=== PATIENT | female | born 1950 | race Caucasian/White ===

== ENCOUNTER 2018-07-27 06:10 | Inpatient (IN) ==
--- NOTE | 2018-07-26 20:22 | Anesthesia Evaluation PreOp ---
Date of Encounter: 07/27/18 Time of Encounter: 07:05 - Past History Planned Operation: right TSR Cardiac History: Hyperlipidemia Pulmonary History: Denies Any Significant HX [employer] History: Other (hx brain tumor with resection, peripheral neuropathy) Other Medical History: Hepatic (cirrhosis), Diabetes Type II, Thyroid (hypo), GERD, Other (depression, chronic pain) Anesthesia History: No Prior Anesthetic Complications, Past Anesthesia (craniotomy, breast reduction, JEANINE, aisha, Back sx, Chest wall cyst, CTR, appy, first toe amp) Alcohol Use: none Drug use: none Medications and Allergies Lidocaine [Lidoderm] 1 each TP BID PRN #14 adh..patch 04/10/18 [Rx] Allergy/AdvReac Type Severity Reaction Status Date / Time IVP dye Allergy Hives Uncoded 04/10/18 15:51 - Meds/Allergy Pre-op Review Medications Reviewed: Yes Allergies Reviewed: Yes Beta Blockers on Current Med List: No Anesthesia Results - Labs Laboratory Tests 07/20/18 07/20/18 07/20/18 12:25 12:25 12:25 Hgb 11.4 L Hct 34.4 L Plt Count 84 L PT 11.8 INR 1.0 APTT 27.9 Sodium 140 Potassium 4.0 BUN 18 Creatinine 0.99 - Imaging EKG: report reviewed (SINUS RHYTHM) Anesthesia Exam Selected Entries 07/27/18 06:35 Temperature 98.0 F Pulse Rate 101 Respiratory Rate 18 Blood Pressure 138/77 O2 Sat by Pulse Oximetry 99 Weight: 54kg NPO (# of Hours): 8 - HEENT Pupil (Motor): EOMI Mallampati: II Teeth: Edentulous Oral Opening: Less than or equal to 3 - [employer] LOC: Oriented [employer] Motor: Normal RUE, Normal LUE, Normal RLE, Normal LLE, Normal Face [employer] Sensory: Deficit: RUE (hyperesthesia), LUE (hyperesthesia), RLE (hyperesthesia), LLE (hyperesthesia) - Cardiac Rhythm: Regular Murmur: None - Pulmonary Breath Sounds: bilateral Clear Respiratory Effort: Symmetrical Anesthesia Assess/Plan ASA Score: 2 Level of consciousness: Cooperative, Oriented, Tranquil Anesthetic Plan: General, Regional Nerve Block Regional Nerve Block Plan: Interscalene Monitoring Plan: Standard Monitors Recovery Plan: PACU (agrees to GA and block)
[2018-07-27] MEDS ORDERED: CeFAZolin Syr 2,000MG/20 ML 2,000 MG/20 ML SYRINGE IVPB ONE (06:24)
--- NOTE | 2018-07-27 06:26 | History & Physical Report ---
Date of Encounter: 07/27/18 Time of Encounter: 06:26 24 Hour HP Update - Instructions Instructions: If the History and Physical is less than 30 days old and was completed prior to A.M. admission and or procedure and has NOT been updated on calendar day of procedure please complete this update prior to performing procedure. - Update Patient reports changes in Medical Condition: No Changes in examination, assessment, or condition: No Changes in Medication: No Preop tests/diagnostics Reviewed: Yes Surgery Remains Indicated: Yes Consent for Planned Operative Procedure(s) Verified: Yes - Pre-Operative Checklist Preoperative Checklist Indicated: No Prophylactic Antibiotic Ordered: Yes Is VTE Prophylaxis Indicated?: Yes
[2018-07-27] MEDS ORDERED: Ringers Solution, Lactated 1,000 ML IVC SCH ×2 (06:30→10:52)
[2018-07-27] MEDS ORDERED: *HR* Propofol 200 MG/20 ML VIAL IVP ONE (07:07)
[2018-07-27] MEDS ORDERED: *HR* Midazolam HCl 2 MG/2 ML VIAL ONE (07:07)
[2018-07-27] MEDS ORDERED: *HR* FentaNYL (PF) 100 MCG/2 ML VIAL ONE (07:07)
[2018-07-27] MEDS ORDERED: Ondansetron 4 MG/2 ML VIAL ONE (07:10)
[2018-07-27] MEDS ORDERED: *HR* Succinylcholine 200 MG/10 ML VIAL IVP ONE (07:10)
[2018-07-27] MEDS ORDERED: Lidocaine -MPF 2% 2 ML VIAL ONE (07:10)
[2018-07-27] MEDS ORDERED: Lidocaine -MPF 4% 5 ML AMPUL ONE (07:10)
[2018-07-27] MEDS ORDERED: Dexamethasone 4 MG/ML VIAL ONE (07:10)
[2018-07-27] MEDS ORDERED: ROPIVACAINE HCL/PF 0.5% 30 ML VIAL ONE (07:16)
[2018-07-27] MEDS ORDERED: Bupivacaine/Clonidine Syringe 1 EACH SYRINGE ONE (07:16)
[2018-07-27] MEDS ORDERED: Celecoxib 100 MG CAPSULE PO ONE (07:17)
[2018-07-27] MEDS ORDERED: Ethanol\\Acetic Acid\\Na Ace\\Ben 1,000 ML IRRIG.SOLN IR ONE (07:32)
--- NOTE | 2018-07-27 07:53 | Discharge Summary ---
<Olivier Polanco - Last Filed: 07/27/18 07:52> Orders not resulted at time of discharge: Pending orders 07/27/18 07:14 US anesthesia pain block [US] Stat Date of Encounter: 07/27/18 - Discharge Diagnosis (1) Hyperlipidemia Priority: Secondary Status: Chronic Qualifiers: Hyperlipidemia type: unspecified Qualified Code(s): E78.5 - Hyperlipidemia, unspecified (2) Type 2 diabetes mellitus Priority: Secondary Status: Chronic Qualifiers: Diabetes mellitus senior care insulin use: unspecified rat exterminator insulin use status Diabetes mellitus complication status: without complication Qualified Code(s): E11.9 - Type 2 diabetes mellitus without complications (3) History of brain tumor Priority: Secondary Status: Chronic (4) Rotator cuff tear arthropathy of right shoulder Priority: Primary Status: Chronic (5) Status post total replacement of right shoulder Priority: Primary Status: Acute - Hospital Course Hospital course: Ms. Broussard is a 67 year old female - Time Spent with Patient Total time spent providing and/or coordinating discharge services: - Discharge Medications Prescriptions: Docusate [Colace] 100 mg PO BID #14 capsule Ferrous Sulfate [Iron] 325 mg PO DAILY #30 tablet Home Medications: Docusate [Colace] 100 mg PO BID #14 capsule 07/27/18 [Rx] Ferrous Sulfate [Iron] 325 mg PO DAILY #30 tablet 07/27/18 [Rx] Insulin ASPART [Novolog Flexpen] 2 - 13 unit SQ AD 07/27/18 [History] Insulin Glargine,Hum.rec.anlog [Basaglar Kwikpen U-100] 20 unit SQ QPM 07/27/18 [History] Insulin Glargine,Hum.rec.anlog [Basaglar Kwikpen U-100] 40 unit SQ QAM 07/27/18 [History] OxyCODONE Immed Rel [Roxicodone 5 MG] 5 mg PO Q6HR PRN 5 Days #20 tablet 07/27/18 [Rx] Sertraline [Zoloft] 25 mg PO DAILY 07/27/18 [History] Allergies/Adverse Reactions: Allergy/AdvReac Type Severity Reaction Status Date / Time Iodinated Contrast- Oral and Allergy Hives Verified 07/27/18 07:23 IV Dye Primary care physician: Deisi Burgos - Patient Status Disposition: Home Health Service Condition: Good - Discharge Instructions Follow Up With: Deisi Burgos [Primary Care Provider] - <Brittany Vanessa - Last Filed: 07/28/18 16:48> - NOTES TO OUTPATIENT PROVIDER Notes to Outpatient Provider: Acute Blood loss anemia - follow up H/H needed Orders not resulted at time of discharge: Pending orders 07/27/18 07:14 US anesthesia pain block [US] Stat 07/27/18 07:53 XR post op reverse apex RT [XR] Routine 07/27/18 09:44 Surgical Pathology [PTH] Routine 07/28/18 04:00 Basic Metabolic Panel AM 0400 Hemoglobin and Hematocrit [HEME] AM 0400 07/29/18 04:00 Basic Metabolic Panel AM 0400 Hemoglobin and Hematocrit [HEME] AM 0400 Date of Encounter: 07/28/18 Time of Encounter: 16:46 - Discharge Diagnosis (1) Status post total replacement of right shoulder Priority: Primary Status: Acute Comments: Opsite dressing, leave intact until first post-operative visit. Zipline/Josemanuel in place, plan to remove at post-operative day #14-16. If dressing becomes >50% saturated, contact office, remove dressing and place appropriate dressing in its place. Do not allow for dressing to get wet. Shoulder Precautions x 6 weeks. Apply cold therapy wrap 3-6x/day for 20 minutes at a time. Encourage ambulation throughout the day. Use Incentive spirometer 10x/hour. Elevate affected extremity above heart as tolerated. NWB to affected upper extremity x 6 weeks. Will remove brace at first post-operative appointment. OK to remove during PT/OT and Home exercises. (2) Hyperlipidemia Status: Chronic Qualifiers: Hyperlipidemia type: unspecified Qualified Code(s): E78.5 - Hyperlipidemia, unspecified (3) Rotator cuff tear arthropathy of right shoulder Status: Chronic (4) Type 2 diabetes mellitus Status: Chronic Qualifiers: Diabetes mellitus rat exterminator insulin use: unspecified senior care insulin use status Diabetes mellitus complication status: without complication Qualified Code(s): E11.9 - Type 2 diabetes mellitus without complications - Hospital Course Hospital course: Ms. Broussard is a 67 year old female, status post Right TSR-r 07/27/18. . Patient had uneventful postoperative course. Stable for discharge. Patient seen at bedside, without complaints. A&O x 3 Afebrile, Vital Signs Temp Pulse Resp BP Pulse Ox 07/28/18 10:14 98.7 F 96 16 128/73 95 07/28/18 06:36 98.4 F 91 16 123/67 98 07/28/18 04:16 98.0 F 92 16 118/68 97 07/27/18 23:35 98.6 F 99 15 102/63 94 07/27/18 23:00 92 07/27/18 19:25 97.5 F L 117 15 140/76 94 Intake and Output 07/28/18 07/28/18 07/28/18 07:59 15:59 23:59 Other: Weight 55.5 kg Blood Glucose* 288 262 Patient Weight 07/28/18 23:59 Weight 55.5 kg Labs reviewed. H/H - stable, asymptomatic. Start iron supplement Short CBC 07/28/18 Range/Units 04:30 Hgb 8.6 L (11.5-15.4) g/dL Hct 25.4 L (35.3-44.9) % BMP 07/28/18 Range/Units 04:30 Sodium 137 (136-145) mEq/L Potassium 4.5 (3.5-5.1) mEq/L Chloride 109 H (98-107) mEq/L Carbon Dioxide 23 (23-29) mEq/L BUN 31 H (8-23) mg/dL Creatinine 1.15 (0.60-1.20) mg/dL Glucose 313 H (70-105) mg/dL Calcium 8.9 (8.6-10.3) mg/dL Pain control: adequate Participating in PT. All questions and concerns addressed. Educated on use of incentive spirometer. Encouraged ambulation and proper hydration. Patient educated on post-operative restrictions and post-operative care. Assessment and plan: Continue with postoperative care Discharge plan: Home, discharge today if vitals are stable and pain is controlled. Plan to follow up H/H with Home health - Time Spent with Patient Total time spent providing and/or coordinating discharge services: Date of admission: 07/27/18 10:52 Primary care physician: Deisi Burgos Consults: 07/27/18 10:52 Consult to Occupational Therapy [CONS] Routine Comment: post shoulder surgery Reason for Consult: post shoulder surgery Does patient have active BEDREST order?: No Is patient medically & hemodynamically stable?: Yes Consult to Physical Therapy [CONS] Routine Comment: post shoulder surgery Reason for Consult: post shoulder surgery Does patient have active BEDREST order?: No Is patient medically & hemodynamically stable?: Yes RT Post Op Consult [CONS] Routine Anticipated date of discharge: 07/28/18 Labs on day of discharge: Labs from last 24 hours 07/27/18 07/27/18 10:22 06:31 Hgb 9.9 L D Hct 29.0 L POC Glucose 208 H - Patient Status Functional capacity at discharge: independent ambulation Overall status at discharge: patient is progressing back to baseline
[2018-07-27] MEDS ORDERED: Celecoxib 200 MG CAPSULE PO SCH (09:00)
[2018-07-27] MEDS ORDERED: *HR* HYDROcodone/Acet 5/325 mg TABLET PO PRN (09:10)
[2018-07-27] MEDS ORDERED: Ondansetron 4 MG/2 ML VIAL IVP ONE (09:10)
[2018-07-27] MEDS ORDERED: EPHEDrine 50 MG/ML VIAL ONE (09:17)
--- NOTE | 2018-07-27 09:24 | Anesthesia Procedures ---
Date of Encounter: 07/27/18 Time of Encounter: 08:30 Procedures: Anesthesia - Nerve Block Procedure Date: 07/27/18 Time: 08:30 Allergies/Adv Reactions: IV Dye Pre-op Diagnosis: R Shoulder Rotator Cuff Arthropathy Surgical Procedure: R Reverse Total Shoulder Arthroplasty Checklist: Correct Patient Identifier, Correct procedure, History checked Correct side: Right Blood Thinner: No Monitor Applied: EKG, BP, Pulse Oximetry Supplemental Oxygen via Nasal Cannula (L/min): 2 Sedation: Versed (mg): 2 Sedation: Fentanyl (mcg): 50 Indication: Post Op Analgesia Pre-op Neuro Deficits: No Block Type: Supraclavicular, Other (Intercostobracheal, Superficial Cervical) Catheter placed: No Sterile Technique: Yes Ultrasound used: Yes Anatomy identified: Yes Visual spread of Local: Yes Neuro Stimulation: No Blood on Needle Aspiration: No Smooth Injection of Local: Yes Pain with Injection of Local: No Prep: Chlorhexadine Needle: 22 x 50 mm Stimuplex Local: 0.25% Bupivicaine w/Clonidine 20 mcg/cc (5mL Superficial Cervical, 10mL Intercostobracheal), Ropivacaine (30mL 0.5% Ropivacaine with 8mg Decadron for Supraclavicular Block) Number of Attempts: 1 Complications: None/effective block Vitals: Vital Signs/O2 Sat/Glucose, Most Recent Temp Pulse Resp BP Pulse Ox 98.0 F 92 13 99/60 96 07/27/18 06:35 07/27/18 08:41 07/27/18 08:41 07/27/18 08:41 07/27/18 08:41 Blood Glucose* 208
--- NOTE | 2018-07-27 09:49 | Orthopedic Operative Note ---
Date of procedure: 07/27/18 Pre-op diagnosis: Right shoulder cuff tear arthropathy Post-op diagnosis: same Procedure: Procedure: Total Shoulder Replacment Reverse, right Estimated blood loss: 50 cc Hardware: Metal and polyethylene replacement: Arthrex 24, +2 , 25 screw glenoid baseplate, 4 locking 5.5 screw, 39+4 glenosphere, 7 apex humeral stem, poly insert 3 Exam Under anesthesia: Full motion no instability Procedural Notes: Irreparable tear supraspinatus Operative procedure: The patient was brought to the operating room and placed on the operating room table. After general anesthesia was administered the operative shoulder was examined. Findings were noted. The patient was placed in the modified beachchair position. All pressure points were padded appropriately. And the head was stabilized in the neutral position. The operative extremity was prepped and draped in the sterile surgical fashion. The patient received IV antibiotics prior to skin incision. A standard deltopectoral approach was made to the operative shoulder. Incision was made to the skin and subcutaneous tissue,hemo stasis was obtained with Bovie cautery. Using careful blunt dissection the cephalic vein was identified and mobilized medially. The deltopectoral interval was developed and the clavipectoral fascia was incised. The subscap was released off the lesser tuberosity and tagged with #2 FiberWire suture subscap was irreparable. The humerus was dislocated patient noted to have irreparable tear supraspinatus tendon, and the humeral cut was made along the anatomic neck. Anterior and posterior Bankart retractors were placed to expose the glenoid. The glenoid guide was seated and the centering hole was made. It was reamed with the appropriate reamer. The 24, +2, 25, baseplate was seated and secured with 4 locking 5.5 screw. The baseplate was irrigated and dried and the 39+4 Glenosphere was seated and secured with the Stanley taper. The Stanley taper was tested and found to be secure, glenosphere fixation was secondarily secured with the central screw. The humerus was redislocated and prepared with the diaphyseal reamers, followed by a broaching process up to the appropriate size 7 apex in the patient's anatomic version. The metaphyseal reamer was then utilized. Trial reduction found the shoulder to be relocatable. Trial components were removed and 7 apex stem was impacted in place in the patient's anatomic version. Trial reduction found the shoulder to be relocatable and stable with the appropriate 3 Trial component was removed and the real implant was seated and secured the shoulder was reduced. The shoulder had excellent motion and exc ellent stability and no evidence of dislocation. The deep tissue was irrigated with pulse irrigation. The PA close the shoulder. The deltopectoral interval was closed with a running #1 PDS suture, subcutaneous tissue was irrigated and closed with 0 PDS suture, the skin was closed with Dermabond. The patient was placed in a sterile dressing, abduction brace and extubated. The patient was then transferred to the recovery room in stable condition. Anesthesia: GETA Surgeon: Olivier Polanco Was there an group fitness assistant department head present: Yes Supervisor [employer] Finishing: Brittany Vanessa Estimated blood loss (cc): 50 Condition: stable Disposition: PACU
[2018-07-27] MEDS: *HR* HYDROmorphone (PF) 1 MG/ML SYRINGE IVP PRN ×2 (10:05→10:10)
--- NOTE | 2018-07-27 10:32 | Anesthesia Evaluation Post Op ---
Date of Encounter: 07/27/18 Time of Encounter: 10:31 - Vital Signs Vital Signs: Selected Entries 07/27/18 09:52 Temperature 98.2 F Pulse Rate 95 Respiratory Rate 16 Blood Pressure 120/60 O2 Sat by Pulse Oximetry 100 - Lungs Lungs: Clear Ascult./Percussion - Airway Airway: Non-obstructed - Cardiovascular Regular Rate - Mental Status Mental Status: Alert & Oriented, Answers Appropriately - Pain Pain Scale: 3 Pain Scale used: Numeric (1 - 10) - Nausea Vomiting Nausea Vomiting: Not Present - Hydration Hydration: Ice chips, Has not voided - Discharge PostOp Status: Transfer Patient to floor
[2018-07-27 10:36] LABS: Hemoglobin 9.9 g/dL (11.5-15.4)
[2018-07-27] MEDS ORDERED: Dextrose Gel 15 GM/37.5 ML TUBE PO PRN ×2 (10:52)
[2018-07-27] MEDS ORDERED: MOM Conc 10 ML UD.LIQ PO PRN (10:52)
[2018-07-27] MEDS ORDERED: Sennosides 8.6 MG TABLET PO PRN (10:52)
[2018-07-27] MEDS ORDERED: *HR* OxyCODONE Immed Rel 5 MG TABLET PO PRN (10:52)
[2018-07-27] MEDS ORDERED: NON-FORMULARY MEDICATION 1 EACH EACH (Insulin Aspart [Novolog Flexpen] 0 UNIT) SQ SCH (10:52)
[2018-07-27] MEDS ORDERED: traMADol 50 MG TABLET PO PRN (10:52)
[2018-07-27] MEDS ORDERED: Naloxone 0.4 MG/ML INJ IVP PRN (10:52)
[2018-07-27] MEDS ORDERED: D5% in Water 1,000 ML IVC PRN (10:52)
[2018-07-27] MEDS ORDERED: *HR* Dextrose 50 % in Water (Syg) 50 ML SYRINGE IVP PRN (10:52)
[2018-07-27] MEDS ORDERED: Temazepam 15 MG CAPSULE PO PRN (10:52)
[2018-07-27] MEDS ORDERED: Ondansetron 4 MG/2 ML VIAL IVP PRN (10:52)
[2018-07-27] MEDS: Insulin LISPRO 300 UNITS/3 ML VIAL SQ SCH ×2 (17:08→17:23)
[2018-07-27] MEDS: Insulin DETEMIR 100 UNIT/ML X5UNITS SQ SCH (17:09)
[2018-07-27] MEDS: *HR* Enoxaparin 30 MG/0.3 ML SYRINGE SQ SCH (17:24)
[2018-07-27] MEDS ORDERED: *HR* Enoxaparin 30 MG/0.3 ML SYRINGE SQ SCH (18:00)
[2018-07-27] MEDS ORDERED: Insulin DETEMIR 100 UNIT/ML X5UNITS SQ SCH (18:00)
[2018-07-27] MEDS ORDERED: Insulin LISPRO 300 UNITS/3 ML VIAL SQ SCH (21:00)
[2018-07-28] MEDS: *HR* OxyCODONE/APAP 5/325 TABLET PO PRN ×2 (02:28→06:11)
[2018-07-28 04:58] LABS: Hematocrit 25.4 % (35.3-44.9); Hemoglobin 8.6 g/dL (11.5-15.4)
[2018-07-28 05:17] LABS: Calcium 8.9 mg/dL (8.6-10.3); Potassium 4.5 mEq/L (3.5-5.1)
[2018-07-28] MEDS: *HR* Enoxaparin 30 MG/0.3 ML SYRINGE SQ SCH (06:15)
--- NOTE | 2018-07-28 08:25 | Orthopedics Progress Note ---
Date of Encounter: 07/28/18 Time of Encounter: 08:24 - Assessment and Plan (1) Hyperlipidemia Current Visit: Yes Status: Chronic Qualifiers: Hyperlipidemia type: unspecified Qualified Code(s): E78.5 - Hyperlipidemia, unspecified (2) Type 2 diabetes mellitus Current Visit: Yes Status: Chronic Qualifiers: Diabetes mellitus residential insulin use: unspecified residential insulin use status Diabetes mellitus complication status: without complication Qualified Code(s): E11.9 - Type 2 diabetes mellitus without complications (3) History of brain tumor Current Visit: Yes Status: Chronic (4) Rotator cuff tear arthropathy of right shoulder Current Visit: Yes Status: Chronic (5) Status post total replacement of right shoulder Current Visit: Yes Status: Acute Subjective Interval history: Patient was seen this morning doing well without complaints. Afebrile vital signs stable. Operative extremity: Neurovascularly intact Dressing clean dry and intact Calves nontender Assessment and plan: Continue with postoperative care Hemoglobin 8.6 asymptomatic plan for discharge today Objective Vital signs: Vital Signs Temp Pulse Resp BP Pulse Ox 07/28/18 06:36 98.4 F 91 16 123/67 98 07/28/18 04:16 98.0 F 92 16 118/68 97 07/27/18 23:35 98.6 F 99 15 102/63 94 07/27/18 23:00 92 07/27/18 19:25 97.5 F L 117 15 140/76 94 07/27/18 16:07 97.4 F L 105 16 99/54 95 07/27/18 14:01 97.4 F L 103 12 106/59 8 07/27/18 12:40 97.7 F 109 12 129/74 97 07/27/18 11:40 107 11 100/62 98 07/27/18 11:02 97.6 F 98 9 106/66 99 07/27/18 10:42 97.4 F L 95 16 117/67 98 07/27/18 10:32 95 16 124/68 97 07/27/18 10:22 97.1 F L 97 16 119/75 97 07/27/18 10:12 93 16 127/69 97 07/27/18 10:02 95 16 113/92 97 07/27/18 09:52 98.2 F 95 16 120/60 100 07/27/18 08:41 92 13 99/60 96 07/27/18 08:30 95 14 133/86 97 Intake and Output 07/27/18 07/28/18 07/28/18 23:59 07:59 15:59 Intake Total 50 / 50 Balance 50 / 50 Intake: Oral 50 / 50 Other: Percent of Meal Consumed 10% # Voids 1 Weight 55.5 kg Blood Glucose* 390 288 Patient Weight 07/28/18 23:59 Weight 55.5 kg - Labs CBC & BMP: 07/28/18 04:30 07/28/18 04:30 Labs: Abnormal lab results Hgb 8.6 g/dL (11.5-15.4) L 07/28/18 04:30 Hct 25.4 % (35.3-44.9) L 07/28/18 04:30 Chloride 109 mEq/L (98-107) H 07/28/18 04:30 BUN 31 mg/dL (8-23) H 07/28/18 04:30 Est GFR ( Amer) 57 (> 60) L 07/28/18 04:30 Est GFR (Non-Af Amer) 47 (> 60) L 07/28/18 04:30 BUN/Creatinine Ratio 27 (6-26) H 07/28/18 04:30 Glucose 313 mg/dL (70-105) H 07/28/18 04:30 POC Glucose 208 mg/dL (70-99) H 07/27/18 06:31 Calculated Osmolality 302 (280-300) H 07/28/18 04:30 Consult Discharge Plan - Plan Referrals: Deisi Burgos [Primary Care Provider] - Prescriptions: Docusate [Colace] 100 mg PO BID #14 capsule Ferrous Sulfate [Iron] 325 mg PO DAILY #30 tablet
[2018-07-28] MEDS: Insulin DETEMIR 100 UNIT/ML X5UNITS SQ SCH (09:17)
[2018-07-28] MEDS: Insulin LISPRO 300 UNITS/3 ML VIAL SQ SCH ×2 (09:18→11:55)
[2018-07-28] MEDS ORDERED: Acetaminophen 325 MG TABLET PO PRN (11:04)
[2018-07-28 11:47] VITALS: BP 128/73
--- NOTE | 2018-07-28 16:50 | Physician Discharge Referral ---
Home Health/Hosp Referral Info Transfer to: Home Health Provider in Charge Post Discharge: PCP - Diagnosis (1) Status post total replacement of right shoulder Priority: Primary Status: Acute (2) Hyperlipidemia Priority: Secondary Status: Chronic (3) Rotator cuff tear arthropathy of right shoulder Priority: Primary Status: Chronic (4) Type 2 diabetes mellitus Priority: Secondary Status: Chronic (5) Acute blood loss anemia Status: Acute - Respiratory Orders None Smoking Cessation: Smoking cessation has been advised. For more information, call the [place] Tobacco Quit Line at 1-055-WWEQ-NOW. - Diet/Nutrition Diet/Nutrition Orders: Regular - Activity Activity Orders: Up ad fan, Ambulate, Chair - Services Needed Following services are medically necessary services: Nursing, Home Health Aide, Physical Therapy, Occupational Therapy Home Care Orders: Opsite dressing, leave intact until first post-operative visit. Zipline in place, plan to remove at post-operative day #14-16. If dressing becomes >50% saturated, contact office, remove dressing and place appropriate dressing in its place. Do not allow for dressing to get wet. Shoulder Precautions x 6 weeks. Apply cold therapy wrap 3-6x/day for 20 minutes at a time. Encourage ambulation throughout the day. Use Incentive spirometer 10x/hour. Elevate affected extremity above heart as tolerated. NWB to affected upper extremity x 6 weeks. Will remove brace at first post-operative appointment. OK to remove during PT/OT and Home exercises. Remove ABD pillow at Postoperative day #1 ACUTE BLOOD LOSS ANEMIA: REPEAT H/H THIS WEEK. Short CBC 07/28/18 Range/Units 04:30 Hgb 8.6 L (11.5-15.4) g/dL Hct 25.4 L (35.3-44.9) % BMP 07/28/18 Range/Units 04:30 Sodium 137 (136-145) mEq/L Potassium 4.5 (3.5-5.1) mEq/L Chloride 109 H (98-107) mEq/L Carbon Dioxide 23 (23-29) mEq/L BUN 31 H (8-23) mg/dL Creatinine 1.15 (0.60-1.20) mg/dL Glucose 313 H (70-105) mg/dL Calcium 8.9 (8.6-10.3) mg/dL - Transfer Medications Prescriptions: Docusate [Colace] 100 mg PO BID #14 capsule Ferrous Sulfate [Iron] 325 mg PO DAILY #30 tablet Home Medications: Docusate [Colace] 100 mg PO BID #14 capsule 07/27/18 [Rx] Ferrous Sulfate [Iron] 325 mg PO DAILY #30 tablet 07/27/18 [Rx] Insulin ASPART [Novolog Flexpen] 2 - 13 unit SQ AD 07/27/18 [History] Insulin Glargine,Hum.rec.anlog [Basaglar Kwikpen U-100] 20 unit SQ QPM 07/27/18 [History] Insulin Glargine,Hum.rec.anlog [Basaglar Kwikpen U-100] 40 unit SQ QAM 07/27/18 [History] OxyCODONE Immed Rel [Roxicodone 5 MG] 5 mg PO Q6HR PRN 5 Days #20 tablet 07/27/18 [Rx] Sertraline [Zoloft] 25 mg PO DAILY 07/27/18 [History] Allergies/Adverse Reactions: Allergy/AdvReac Type Severity Reaction Status Date / Time Iodinated Contrast- Oral and Allergy Hives Verified 07/27/18 07:23 IV Dye Certification: Further, I certify that my clinical findings support that this patient is homebound (i.e. absences from home require considerable and taxing effort and are for medical reasons or anabaptism services or infrequently or short duration when for other reasons) because: Homebound Reason: Post-surgery restriction and or conditions limit ability to leave home Attestation: My signature below is to certify that this patient is under my care and that I, or nurse practitioner, or a physician's phlebotomist medical lab assistant working with me, has a [id number] encounter with this patient.
== END 2018-07-28 14:27 | disposition home health service (06) | DRG 483 ==
LOC: SAMDAY 06:10 → 3NENU 10:52
PROVIDERS: ADMIT Orthopaedic Surgery; ATTEND Orthopaedic Surgery